=== PATIENT | female | born 1995 | race African-American/Black ===

== ENCOUNTER 2025-03-29 13:56 | Outpatient (AMB) | payer OTHER, SELFPAY ==
--- NOTE | 2025-03-29 14:02 | MHC.PC.OV ---
Vital Signs 03/29/25 14:11 Height 5 ft 1 in Weight 133 lb BMI 25.1 BP 102/70 Blood Pressure Location Lt brachial Position Sitting Pulse 91 Pulse Source Pulse Oximeter Temp 99.4 F Temp Source Temporal Artery Scan Pulse Oximetry (%) 97 Oxygen Delivery Method Room Air Intake Visit Reasons: Classification Analyst regular visit Intake Note: Jus presents in the office today to establish care. Patient would like to discuss getting back on the Sertraline. She is on control but unsure of brand name. Allergies Seasonal Allergies Allergy (Mild, Verified 03/29/25 14:06) Congestion Medication List - Last Reconciled 03/30/25 by GILLIAN Balbuena norethindrone-e.estradiol-iron 1 mg-10 mcg (24)/10 mcg (2) (Lo Loestrin Fe) 1 tab PO DAILY sertraline 50 mg PO DAILY Tobacco use date assessed: 03/29/25 Dental Screening Dental Screen Date: 03/29/25 Did you have a dental visit in the last 12 months?: Yes Did you have a dental problem in the last 6 months where you did not have access to dental care?: No Was dental information given to patient?: Patient has dentist HPI HPI Comments History of Present Illness Details This is a 29-year-old female with a past medical history of anxiety presenting to establish care. I saw her at [facility] primary care. She is due for her physical exam. Her only concern today is that she has had some epigastric pain intermittently for a week. It was described as a 2-3/10 intensity and achey. She noticed it last night after she ate and laid down. She had 1 episode of vomiting yesterday which she attributes to anxiety for this appointment. The pain radiates from the epigastric area to both sides of the upper abdomen. Patient is tearful talking about this because she has a lot of medical anxiety, and her grandfather had stomach cancer. She denies unintentional weight loss, nausea, diarrhea, constipation, blood in stools. Denies routine NSAID use. She drinks alcohol on the weekends. She has 2-3 glasses of wine usually 1 day a week. Nonsmoker. She would like to restart sertraline for her anxiety. She has seen a counselor in the past. Reports she has mild depression symptoms which she feels are due to the anxiety. ROS: Constitutional: No unexplained weight loss, fever, chills, fatigue or night sweats. Eyes: No vision changes, blurry vision, double vision, eye pain, eye redness, eye discharge. ENT: No hearing loss, sneezing, congestion, runny nose or sore throat. Respiratory: No shortness of breath, cough or sputum production. Cardiovascular: No chest pain, chest pressure or chest discomfort. No palpitations or pedal edema. Gastrointestinal: See HPI Genitourinary: No dysuria, hematuria, urinary frequency. No abnormal vaginal bleeding or discharge. Neurologic: No headache, dizziness, syncope, unilateral weakness, ataxia, numbness or tingling in the extremities. Musculoskeletal: No muscle pain, back pain, joint pain or swelling. Hematologic/Lymphatics: No bleeding or bruising. No painful lymph nodes. Skin: No rash Endocrine: No cold or heat intolerance. No polyuria or polydipsia. Psychiatric:No SI/HI. Physical exam: Constitutional: Alert, in no distress. Head: Normocephalic. Eyes: Pupils are equal, round and reactive to light. Extraocular muscles intact. Ear, Nose and Throat: Canals clear. TMs normal. Normal nasal mucosa. No nasal discharge. No oral lesions. Neck: Supple, Full range of motion. No lymphadenopathy. No palpable thyroid masses. Respiratory: Clear to auscultation. Cardiovascular: S1 S2 regular. No murmurs. No carotid bruits. Gastrointestinal: Abdomen soft, non-tender, non-distended. Normal bowel sounds. No palpable masses. No rebound or guarding. Genitourinary: No costovertebral angle tenderness. Neurologic: No focal neurological deficits. Symmetric patellar reflexes. Moves all extremities spontaneously. Sensation intact bilaterally. Skin: No rashes Musculoskeletal: No gross deformities. Normal range of motion. Extremities: Warm and well perfused. No clubbing, cyanosis or edema. Intact peripheral pulses bilaterally. Psychiatric: Anxious and tearful. [facility] Medical History (Updated 03/30/25 @ 08:52 by GILLIAN Balbuena) Routine physical examination Anxiety Epigastric abdominal pain Surgical History (Updated 03/30/25 @ 08:52 by GILLIAN Balbuena) History of reduction mammoplasty Family History (Updated 03/29/25 @ 14:10 by Anne Pineda MA) Paternal Grandmother Stomach cancer Breast cancer Paternal Aunt Stomach cancer Breast cancer Other Asthma Social History (Updated 03/29/25 @ 14:11 by Anne Pineda MA) Housing: Condominium Housing Other:: with her cat Alcohol intake: current Patient Tobacco Use Status: Never used Tobacco e-Cigarette/Vaping Use: Never Used Second Hand Smoke Exposure: No Substance Use Type: Marijuana service: No Current occupational status: employed 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 1. Little interest or pleasure in doing things: several days 2. Feeling down, depressed, or hopeless: several days 3. Trouble falling or staying asleep, or sleeping too much: not at all 4. Feeling tired or having little energy: not at all 5. Poor appetite or overeating: several days 6. Feeling bad about yourself - or that you are a failure or have let yourself or your family down: several days 7. Trouble concentrating on things, such as reading the newspaper or watching television: several days 8. Moving or speaking so slowly that other people could have noticed. Or the opposite - being so fidgety or restless that you have been moving around a lot more than usual: not at all 9. Thoughts that you would be better off or of hurting yourself in some way: not at all Total score: 5 Depression Screening Interpretation: Positive Depression Screening Follow-up: Existing condition and New Medication prescribed Depression Screening Done: Yes 85879 - PHQ-9 Billing: Yes Source: Developed by Drs. Kingsley Coto, Yoly Mcdermott, Davis Pillai and colleagues, with an educational lissette from [employer]. Thrive Questionnaire Date Thrive assessed: 03/29/25 I am a: Patient What is your living situation today?: I have a steady place to live Within the past 12 months, did the food you bought not last and you didn't have the money to get more?: Never true Within the past 12 months, did you worry whether your food would run out before you got money to buy more?: Never true Do you have trouble paying for medicines?: No Do you have trouble getting transportation to medical appointments?: No Do you have trouble paying your heating and electricity bill?: No Do you have trouble taking care of your child, family member or friend?: No Do you have trouble with day-to-day activities such as bathing, preparing meals, shopping, managing finances, etc.?: No Are you currently unemployed and looking for a job?: No Are you interested in more education?: No Please select the resources that you would like help with: None Currently or been in a relationship where the following occur: No concerns reported THRIVE Score: 0 AUDIT C Alcohol Use Questionnaire (AUDIT-C) 1. How often do you have a drink containing alcohol?: 2-4 times a month 2. How many drinks containing alcohol do you have on a typical day when you are drinking?: 3 or 4 3. How often do you have six or more drinks on one occasion?: Less than monthly Total Score: 4 MORGAN-7 AMB Questionnaire MORGAN-7 Date MORGAN - 7 assessed: 03/29/25 Feeling nervous, anxious, or on edge: 1 = Several days Not being able to stop or control worryin = Several days Worrying too much about different things: 1 = Several days Trouble relaxin = Several days Being so restless that it is hard to sit still: 1 = Several days Becoming easily annoyed or irritable: 0 = Not at all Feeling afraid as if something awful might happen: 1 = Several days Total MORGAN-7 score (0-4 normal; 5-9 mild; 10-14 moderate; 15-21 severe): 6 Source: Developed by Drs. Kingsley Coto, Yoly Mcdermott, Davis Pillai and colleagues, with an educational lissette from [employer]. MORGAN-7 Assessment Billing MORGAN-7 Assessment Tool: MORGAN-7 Assessment 89599 Physical exam (Primary Care) Vital Signs: Last Vital Signs Temp 99.4 F 03/29/25 14:11 Pulse 91 03/29/25 14:11 BP 102/70 03/29/25 14:11 Pulse Ox 97 03/29/25 14:11 Oxygen Delivery Method Room Air 03/29/25 14:11 BMI result Body Mass Index 25.1 Tobacco/Smoking Status: Tobacco use Status Tobacco use date assessed 03/29/25 03/29/25 14:18 Patient Tobacco Use Status Never used Tobacco 03/29/25 14:18 e-Cigarette/Vaping Use Never Used 03/29/25 14:18 PHQ-9: PHQ-9 Score PHQ-9: Total score 5 03/29/25 14:28 Depression Screening Interpretation: Positive Depression Screening Follow-up: Existing condition and New Medication prescribed Thrive Assessment: Date of Thrive Assessment Date Thrive assessed 03/29/25 03/29/25 14:03 Currently or been in a relationship where the following occur: No concerns reported Coding Level of Care Code Est Pt Prev Care 18-39y(19474) Diagnoses Epigastric abdominal pain R10.13 Anxiety F41.9 Routine physical examination Z00.00 Additional Codes MORGAN-7 Assessment Billing - MORGAN-7 Assessment Tool: MORGAN-7 Assessment 76084 ([id number]) PHQ-9 - 19834 - PHQ-9 Billing: Yes ([id number]) Assessment & Plan Assessment & Plan (1) Epigastric abdominal pain: Code(s): R10.13 - Epigastric pain Category: Medical Plan: Discussed differential including gastritis, Helicobacter pylori, viral symptoms. Advised patient given age and lack of risk factors malignancy is less likely, but I understand her anxiety and we will evaluate her symptoms. Patient is well-appearing today with nonsurgical abdomen on exam. Warning signs warranting ER evaluation reviewed. Proceed with labs including CBC, CMP, TSH, pancreatic enzymes, Helicobacter stool antigen. Once resulted plan to try omeprazole 40 mg daily for 14 days. Check ultrasound for gallstones or other intra-abdominal pathology. Advised to avoid spicy and acidic foods. Avoid alcohol and NSAIDs. (2) Anxiety: Code(s): F41.9 - Anxiety disorder, unspecified Category: Medical Plan: Declined referral to therapy. Restart Zoloft. Black box warning and administration reviewed. (3) Routine physical examination: Code(s): Z00.00 - Encounter for general adult medical examination without abnormal findings Category: Medical Plan: Patient is seen today for a routine physical. As part of this visit we reviewed the following issues, which are considered and essential part of preventative health in this age group: - Breast Cancer screening - Annual Works Manager exam - Blood pressure screening - Cholesterol screening - Osteoporosis prevention including calcium/vitamin D intake, weight bearing exercise & smoking cessation - Nutritional and exercise counseling - Counseling of injury prevention including fire prevention, smoke alarms and seat belt usage - Screening for depression - Prevention of and/or testing for infectious diseases - declined - Education about skin cancer - Recommendations about immunizations - Recommendation of an eye exam - Screening for substance abuse Plan Follow up in 6 weeks. Orders: Orders Amylase 03/29/25 R10.13 - Epigastric pain Lipase 03/29/25 R10.13 - Epigastric pain H pylori Ag Stool 03/29/25 R10.13 - Epigastric pain US abdomen complete 03/29/25 R10.13 - Epigastric pain Comprehensive Met. Panel 03/29/25 R10.13 - Epigastric pain Complete Blood Count no Diff 03/29/25 R10.13 - Epigastric pain TSH reflex Free T4 03/29/25 R10.13 - Epigastric pain Lipid Panel 03/29/25 E78.5 - Hyperlipidemia, unspecified, R10.13 - Epigastric pain Medications: New sertraline Take 1/2 tablet po daily for 1 week then increase to 1 tablet daily. 50 mg PO DAILY 90 tabs 3RF
[2025-03-29 14:11] VITALS: BP 102/70; PULSE 91; TEMP 37.4; O2SAT 97; BMI 25.1
== END 2025-03-29 14:46 | disposition home or self-care (01) ==
LOC: HO.HMCFM 13:56
PROVIDERS: PCP Physician Assistant Medical; Visit Provider Physician Assistant Medical
DX: R10.13 Epigastric pain (principal); F41.9 Anxiety disorder, unspecified; Z00.00 Encounter for general adult medical examination without abnormal findings

== ENCOUNTER → 2025-03-29 13:56 | Outpatient (BNVA) | payer OTHER, SELFPAY | PROVIDERS: PCP Physician Assistant Medical; Visit Provider Physician Assistant Medical | DX: Z00.00 Encounter for general adult medical examination without abnormal findings (principal); Z76.89 Persons encountering health services in other specified circumstances; R10.13 Epigastric pain; F41.9 Anxiety disorder, unspecified; Z13.30 Encounter for screening examination for mental health and behavioral disorders, unspecified; Z13.31 Encounter for screening for depression | CPT/HCPCS: 96127 ==

== ENCOUNTER 2025-03-29 14:55 | Outpatient (REF) | payer OTHER, SELFPAY ==
[2025-03-29 18:09] LABS: Alanine Aminotransferase 14 U/L (0-31); Albumin Level 4.7 g/dL (3.5-5.0); Anion Gap 13 (12-20); Aspartate Amino Transferase 24 U/L (5-31); Bilirubin Total 0.2 mg/dL (0.0-1.0); Blood Urea Nitrogen 6 mg/dL (9-16); Calcium 9.8 mg/dL (8.4-10.2); Carbon Dioxide 25 mmol/L (22-29); Chloride 104 mmol/L (96-108); Cholesterol 218 mg/dL (<200); Estimated Glomerular Filt Rate > 60; Glucose Random 81 mg/dL (60-115); HDL Cholesterol 66 mg/dL (>40); LDL Cholesterol Calculated 127 mg/dL (<100); Lipase 15 U/L (8-78); Sodium 138 mmol/L (135-145); Total Protein 7.6 g/dL (6.5-8.0); Triglycerides 125 mg/dL (<150)
[2025-03-29 18:19] LABS: Alkaline Phosphatase 41 U/L (39-117); Amylase 50 U/L (28-100); TSH reflex Free T4 0.87 uIU/mL (0.32-4.0)
[2025-03-29 18:38] LABS: Hematocrit 42.8 % (37.0-47.0); Hemoglobin 13.9 g/dl (12.0-16.0); Mean Corpuscular HGB Conc 32.5 g/dl (31.0-35.0); Mean Corpuscular Hemoglobin 28.9 pg (27.0-33.0); Mean Platelet Volume 11.8 fL (9.4-12.3); Platelet Count 252 X10*3/uL (160-400); Red Blood Count 4.81 X10*6/uL (4.20-5.50); Red Cell Distribution Width 12.9 % (11.0-16.0); White Blood Count 10.2 X10*3/uL (4.8-10.8)
== END 2025-03-29 14:56 | disposition home or self-care (01) ==
LOC: HO.WFDLDS 14:55
PROVIDERS: Visit Provider Physician Assistant Medical
DX: R10.13 Epigastric pain (principal); E78.5 Hyperlipidemia, unspecified
CPT/HCPCS: 36415; 80053; 80061; 82150; 83690; 84443; 85027; 87338

== ENCOUNTER 2025-04-08 08:23 | Outpatient (REF) | payer OTHER, SELFPAY ==
--- NOTE | ~2025-04-08 | US_ITS ---
CLINICAL HISTORY: R10.13 - Epigastric pain US abdomen complete Comparison: None Findings: The visualized pancreas is normal. The aorta and inferior vena cava are normal caliber. Liver measures 8.3 cm in length. Somewhat coarse hepatic echotexture. There is no intrahepatic bile duct dilatation. The common duct is 3 mm in diameter. The distended gallbladder is normal. There is no sonographic Singleton sign. The main portal vein is antegrade. The right kidney is 10.4 cm in length. The left kidney is 9 cm in length. Unremarkable kidneys. The spleen is normal. Spleen measures 7.8 cm in length No ascites. IMPRESSION: Somewhat coarse hepatic echotexture may be incidental or due to underlying hepatic disease. Clinical/lab correlation recommended. This document has been electronically signed by: Kristen Funez MD on 04/08/2025 10:36:21
== END 2025-04-08 08:24 | disposition home or self-care (01) ==
LOC: HO.HMGCX 08:23
PROVIDERS: PCP Physician Assistant Medical; Visit Provider Physician Assistant Medical
DX: R10.13 Epigastric pain (principal)
CPT/HCPCS: 76700

== ENCOUNTER → 2025-04-08 08:26 | Outpatient (BNV) | payer OTHER, SELFPAY | PROVIDERS: PCP Physician Assistant Medical; Visit Provider Radiology Diagnostic Radiology | DX: R10.13 Epigastric pain (principal) | CPT/HCPCS: 76700 ==

== ENCOUNTER 2025-04-09 13:28 | Outpatient (REF) | payer OTHER, SELFPAY ==
[2025-04-09 18:31] LABS: Alanine Aminotransferase 20 U/L (0-31); Aspartate Amino Transferase 31 U/L (5-31)
[2025-04-12 04:31] LABS: HBc Num1 0.05 S/CO (0.00-0.79); HBsAGNum1 0.39 S/CO (0.00-0.99); Hepatitis A Antibody IgM 0.22 Index (0-0.79); Hepatitis B Core Antibody Nonreactive (Nonreactive); Hepatitis B Surface Antigen Negative (Negative); ~HepC Num1 0.08 S/CO (0.00-0.79); ~Hepatitis A Antibody IgM Nonreactive (Nonreactive); ~Hepatitis B Surface Antibody NONREACTIVE (Nonreactive); ~Hepatitis C Antibody Nonreactive (Nonreactive)
[2025-04-12 04:46] LABS: Hepatitis A Antibody IgM 0.17 Index (0-0.79); ~Hepatitis A Antibody IgM Nonreactive (Nonreactive)
[2025-04-13 11:38] LABS: Mitochondrial Antibodies NEGATIVE (NEGATIVE)
[2025-04-13 16:28] LABS: Anti Nuclear Antibody Screen NEGATIVE (NEGATIVE)
[2025-04-14 09:19] LABS: Smooth Muscle Antibody <20 U (<20)
== END 2025-04-09 13:29 | disposition home or self-care (01) ==
LOC: HO.WFDLDS 13:28
PROVIDERS: Visit Provider Physician Assistant Medical
DX: R93.2 Abnormal findings on diagnostic imaging of liver and biliary tract (principal)
CPT/HCPCS: 36415; 84450; 84460; 86015; 86038; 86381; 86704; 86706; 86709; 86803; 87340

== ENCOUNTER 2025-07-19 09:04 | Outpatient (AMB) | payer OTHER, SELFPAY ==
--- NOTE | 2025-07-19 09:07 | A.OFFPC_ITS ---
Vital Signs 07/19/25 09:09 Height 5 ft 1 in Weight 130 lb BMI 24.6 BP 108/68 Blood Pressure Location Rt brachial Position Sitting Pulse 81 Pulse Source Pulse Oximeter Temp 97.4 F Temp Source Temporal Artery Scan Pulse Oximetry (%) 98 Oxygen Delivery Method Room Air Intake Visit Reasons: med check Intake Note: Jus presents in the office today for a medication check in. Allergies Seasonal Allergies Allergy (Mild, Verified 07/19/25 09:08) Congestion Medication List - Last Reconciled 07/19/25 by GILLIAN Balbuena norethindrone-e.estradiol-iron 1 mg-10 mcg (24)/10 mcg (2) (Lo Loestrin Fe) 1 tab PO DAILY sertraline 50 mg PO DAILY Tobacco use date assessed: 07/19/25 Dental Screening Dental Screen Date: 07/19/25 Did you have a dental visit in the last 12 months?: Yes Did you have a dental problem in the last 6 months where you did not have access to dental care?: No Was dental information given to patient?: Patient has dentist HPI HPI Comments History of Present Illness Details This is a 29-year-old female with a past medical history of anxiety presenting for follow up. She restarted sertraline at her physical exam. She is taking 50 mg daily. She denies side effects. She notices improvement in her anxiety. She is also focusing on wellness in general and has been following a healthy diet and using a stationary bike cycle to exercise to promote weight loss. She lost 3 lb. Work is slowing down so she has had less stress there. Her friends are coming up this week to go to the [employer]. A week ago she noticed a nontender bump on her right terrell. It is getting smaller. There was no discoloration. She does not remember bumping into anything, but she thinks that she may have. No numbness or tingling. ROS: Constitutional: No unexplained weight loss, fever, chills, fatigue Gastrointestinal: No anorexia, nausea, vomiting or diarrhea. No abdominal pain Psychiatric: No depression. No SI/HI. Physical exam: Constitutional: Alert, in no distress. Respiratory: Clear to auscultation. Cardiovascular: S1 S2 regular. No murmurs. Gastrointestinal: Abdomen soft, non-tender, non-distended. Normal bowel sounds. No palpable masses. Extremities: Warm and well perfused. No clubbing, cyanosis or edema. 1 cm nontender bump on the right anterior terrell. Psychiatric: Normal mood and affect [facility] Medical History (Updated 03/30/25 @ 08:52 by GILLIAN Balbuena) Routine physical examination Anxiety Epigastric abdominal pain Surgical History (Updated 03/30/25 @ 08:52 by GILLIAN Balbuena) History of reduction mammoplasty Family History Paternal Grandmother Stomach cancer Breast cancer Paternal Aunt Stomach cancer Breast cancer Other Asthma Social History (Updated 07/19/25 @ 09:09 by Anne Pineda CMA) Housing: Condominium Housing Other:: with her cat Alcohol intake: current Patient Tobacco Use Status: Never used Tobacco e-Cigarette/Vaping Use: Never Used Second Hand Smoke Exposure: No Substance Use Type: Marijuana service: No Current occupational status: employed 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 [employer] Current occupational exposures/hazards: No Cognitive needs: No Hearing needs: No Vision needs: No Questionnaire Thrive Questionnaire Date Thrive assessed: 03/22/25 I am a: Patient What is your living situation today?: I have a steady place to live Within the past 12 months, did the food you bought not last and you didn't have the money to get more?: Never true Within the past 12 months, did you worry whether your food would run out before you got money to buy more?: Never true Do you have trouble paying for medicines?: No Do you have trouble getting transportation to medical appointments?: No Do you have trouble paying your heating and electricity bill?: No Do you have trouble taking care of your child, family member or friend?: No Do you have trouble with day-to-day activities such as bathing, preparing meals, shopping, managing finances, etc.?: No Are you currently unemployed and looking for a job?: No Are you interested in more education?: No Please select the resources that you would like help with: None Currently or been in a relationship where the following occur: No concerns reported THRIVE Score: 0 MORGAN-7 AMB Questionnaire MORGAN-7 Date MORGAN - 7 assessed: 03/29/25 Source: Developed by Drs. Kingsley Coto, Yoly Mcdermott, Davis Pillai and colleagues, with an educational lissette from [employer]. Physical exam (Primary Care) Vital Signs: Last Vital Signs Temp 97.4 F 07/19/25 09:09 Pulse 81 07/19/25 09:09 BP 108/68 07/19/25 09:09 Pulse Ox 98 07/19/25 09:09 Oxygen Delivery Method Room Air 07/19/25 09:09 BMI result Body Mass Index 24.6 Tobacco/Smoking Status: Tobacco use Status Tobacco use date assessed 07/19/25 07/19/25 09:12 Patient Tobacco Use Status Never used Tobacco 07/19/25 09:09 e-Cigarette/Vaping Use Never Used 07/19/25 09:09 Thrive Assessment: Date of Thrive Assessment Date Thrive assessed 03/22/25 07/19/25 09:07 Currently or been in a relationship where the following occur: No concerns reported Coding Level of Care Code Est Pt Level 4 (62462) Complex EM visit Add On G2211 Diagnoses Anxiety F41.9 Lump of skin of right lower extremity R22.41 Assessment & Plan Assessment & Plan (1) Anxiety: Code(s): F41.9 - Anxiety disorder, unspecified Category: Medical Plan: Controlled. Continue sertraline 50 mg daily. (2) Lump of skin of right lower extremity: Code(s): R22.41 - Localized swelling, mass and lump, right lower limb Plan: This may be a hematoma or possibly a cyst but I suspect hematoma since it is getting smaller since she noticed it. Recommended application of heat and monitoring for 4-6 weeks. If there is any persistent bump she will contact me for ultrasound. Plan Follow up in 6 months for a med review.
[2025-07-19 09:09] VITALS: BP 108/68; PULSE 81; TEMP 36.3; O2SAT 98; BMI 24.6
--- OUTSIDE RECORDS SUMMARY | 2025-07-19 10:39 | XMS_ITS | Encounter Summary ---
Author Organization [facility] Address [address] [place] [address] Care Team Providers Care Sephora Operations Consultant Name Role Phone Elaine Hair MD Primary Care Provider Unavail able Elaine Hair MD Primary Care Provider Unavail able Marquita Stephens MD Primary Care Provider [phone] Nick Fallon MD Primary Care Provider Dayan mcallister Encounter Details Date Type Department Care Team Description 06/27/2017 Telephone Adult Medicine [address] [address] Elaine Hair MD Social History Tobacco Use Types Packs/Day Years Used Date Smoking Tobacco: Never Alcohol Use Standard Drinks/Week Comments Yes 0 (1 standard drink = 0.6 oz pure alcohol) occasional alcohol use. 3 x per week one glass of wine Sex Assigned at Date Recorded Not on file Job Start Date Occupation Industry Not on file Not on file Not on file documented as of this encounter Miscellaneous Notes * Telephone Encounter - Elaine Hair MD - 06/27/2017 8:35 AM EDT Advised screening is negative by telephone documented in this encounter Plan of Treatment Not on file documented as of this encounter Visit Diagnoses Not on filedocumented in this encounter Care Teams Sephora Operations Consultant Relationship Specialty Start Date End Date Elaine Hair MD PCP - General Internal Medicine 09/13/16 05/26/19 Elaine Hair MD PCP - General Internal Medicine 05/27/19 08/22/21 Marquita Stephens MD [address] [place] [id number] PCP - General Internal Medicine 08/23/21 10/01/21 Nick Fallon MD [address] [place] [id number] PCP - General Internal Medicine 10/02/21 documented as of this encounter
--- OUTSIDE RECORDS SUMMARY | 2025-07-19 10:39 | XMS_ITS | Clinical Summary ---
Author Organization [facility] Address [address] [place] [address] Care Team Providers Care Night Coordinator Name Role Phone Nick Fallon MD Primary Care Provider Dayan mcallister Medications Medication Sig Dispensed Refills Start Date End Date Status Aurovela FE 11/16 1-20 MG-MCG per tablet Take 1 tablet by mouth daily. 0 09/18/2021 Active Active Problems Problem Noted Date Marijuana use 06/15/2020 Status post bilateral breast reduction 0 05/27/2019 Intertrigo 03/25/2019 Macromastia 03/25/2019 Anxiety Resolved Problems Problem Noted Date Resolved Date Chronic neck and back pain 03/25/201910/02 Immunizations Name Administration Dates Next Due COVID-19 (Pfizer) 01/20/2021,12/30/2020 Gardasil 9 (Hpv) 05/04/2019 Influenza (> 6 Months) 11/08/2016 Influenza Flu (PT Reported) 08/03/2020 Influenza Vaccine-preservati ve Free-quadrivalent 4 Years 11/10/2021 MMR (Komtcwg-Tpmmp-Okyhpnt) 06/11/2018, 8 PPD-RBMG 05/07/2018 Tdap 01/04/2017 Family History Medical History Relation Name Comments No medical history Father Stomach cancer Father's side aunt in 50s No medical history Mother Cancer, Other Paternal Grandmother Relation Name Status Comments Father Alive Father's side aunt Mother Alive Paternal Grandmother Social History Tobacco Use Types Packs/Day Years Used Date Smoking Tobacco: Never Smokeless Tobacco: Never Alcohol Use Standard Drinks/Week Comments Not Currently 0 (1 standard drink = 0.6 oz pur e alcohol) once or twice a month Education Answer Date Recorded What is the highest level of school you have completed or the highest degree you have received? Master's degree (e.g., MA, MS, Shawna, MEd, [employer], [employer]) 10/02/2021 Sex Assigned at Date Recorded Not on file Job Start Date Occupation Industry Not on file Not on file Not on file Last Filed Vital Signs Vital Sign Reading Time Taken Comments Blood Pressure 120/74 11/10/2021 9:42 AM EST Pulse 80 11/10/2021 9:42 AM EST Temperature 36.3 C (97.4 F) 11/10/2021 9:42 AM EST Respiratory Rate 10 11/10/2021 9:42 AM EST Oxygen Saturation 98% 10/02/2021 11:07 AM EST Inhaled Oxygen Concentration - - Weight 55.8 kg (123 lb) 11/10/2021 9:42 AM EST Height 154.9 cm (5' 1 ) 11/10/2021 9:42 AM EST Body Mass Index 23.24 11/10/2021 9:42 AM EST Plan of Treatment Health Maintenance Due Date Last Done Comments CERVICAL CANCER SCREENING 2015 Covid-19 Vaccine (2022-2 4 season) 2025 01/20/2021, 12/30/2020 INFLUENZA (#1) 2025 11/10/2021, 07/28 (External Completion of Vaccination per patient), 08/03/2020, Additional history exists BASELINE HEALTH EXAM 18-39 10/02/202610/02, 06/15/2020 (Completed), 06/15/2020, Additional history exists CHOLESTEROL SCREENING 10/02/2026 10/02/2021 , 06/16/2020, 05/06/2019, Additional history exists DTAP/TDAP/TD (3 - Td or Tdap) 01/04/2027 (Completed), 01/04/2017, 11/01/1999 (External Completion) PNEUMOCOCCAL VACCINE FOR HIG H RISK PATIENTS (#1) 2059 Care Teams Night Coordinator Relationship Specialty Start Date End Date Nick Fallon MD PCP - General Internal Medicine 10/02/21
--- OUTSIDE RECORDS SUMMARY | 2025-07-19 10:39 | XMS_ITS | Encounter Summary ---
Author Organization [facility] Address [address] [place] [address] Care Team Providers Care Lens Shaper Grinder Name Role Phone Elaine Hair MD Primary Care Provider Unavail able Elaine Hair MD Primary Care Provider Unavail able Marquita Stephens MD Primary Care Provider Nick Fallon MD Primary Care Provider Dayan [email or web address] Encounter Details Date Type Department Care Team Description 11/08/2016 Release of Information Medical Records [address] [place] [id number] Abstract, Provider Social History Tobacco Use Types Packs/Day Years [...] on file documented as of this encounter Plan of Treatment Not on file documented as of this encounter Visit Diagnoses Not on filedocumented in this encounter Care Teams Lens Shaper Grinder Relationship Specialty Start Date End Date Elaine Hair MD PCP - General Internal Medicine 09/13/16 05/26/19 Elaine Hair MD PCP - General Internal Medicine 05/27/19 08/22/21 Marquita Stephens MD [address] [place], [place] [id number] PCP - General Internal Medicine 08/23/21 10/01/21 Nick Fallon MD [address] [place] [id number] PCP - General Internal Medicine 10/02/21 documented as of this encounter
--- OUTSIDE RECORDS SUMMARY | 2025-07-19 10:39 | XMS_ITS ---
Author Name [facility] Organization Unknown Care Team Organization Name Specialty Phone Email Start Date End Da te [facility] Termed, PROVIDER Primary Care 09/04/202205/28
== END 2025-07-19 09:47 | disposition home or self-care (01) ==
LOC: HO.HMCFM 09:04
PROVIDERS: PCP Physician Assistant Medical; Visit Provider Physician Assistant Medical
DX: F41.9 Anxiety disorder, unspecified (principal); R22.41 Localized swelling, mass and lump, right lower limb